=== PATIENT | male | born 1955 | race Caucasian/White ===

== ENCOUNTER → 2021-10-24 | Outpatient (CLI) | payer MEDICARE, OTHER ==
[~2021-10-24] MED LIST: ANDROGEL75 GM TD; ASPIR 8181 MG PO; ATENOLOL50 MG PO; FISH OIL PO; MOTRIN200 MG PO; MULTIVITAMINS1 EAC8 PO
== END ==
LOC: LAB 11:39
PROVIDERS: ATTEND Family Medicine
DX: D75.1 Secondary polycythemia (principal)

== ENCOUNTER → 2021-11-12 | Outpatient (CLI) | payer MEDICARE | LOC: SLEEP 17:00 | PROVIDERS: ATTEND Family Medicine | DX: G47.33 Obstructive sleep apnea (adult) (pediatric) (principal) | CPT/HCPCS: 95811 ==